=== PATIENT | female | born 1955 | race Caucasian/White ===

== ENCOUNTER 2020-06-29 11:18 | Inpatient (IN) | payer OTHER, MEDICARE, SELFPAY ==
[~2020-06-29] VITALS: Ht 154.9 cm; Wt 66.7 kg
[~2020-06-29 11:18] MED LIST: BUPIVACAINE /EPINEPHRINE/PF 0.25% 30 ML VIAL INJ ONE; CEFAZOLIN 2 GM IVPB PREMIX 50 ML IV ONE; LR 1,000 ML IV.SOLN IV ONE; MIDAZOLAM HCL 5 MG/5 ML VIAL IVP ONE; NS 1000 ML IV.SOLN IV ONE; NS IRRIG SOLN 1000 ML IR ONE; PROPOFOL 200MG/ 20ML VIAL (DIPRIVAN) IV ONE; ROCURONIUM BROMIDE 10 MG/ML (ZEMURON) IV ONE; SEVOFLURANE 15 MIN GAS INH ONE; fentaNYL CITRATE/PF 100 MCG/2 ML AMP IVP ONE
[2020-06-29 11:31] VITALS: BP_SYST 135
--- NOTE | 2020-06-29 11:35 | NUR ---
SENT TO NO BEDS IN ER
--- NOTE | 2020-06-29 11:45 | NUR ---
ER at bedside examining THE PT IN [place].
[2020-06-29 12:50] LABS: BASOPHILS % (AUTO) 0.4 % (0.0-2.0); EOSINOPHILS % (AUTO) 0.3 % (0.0-4.0); HEMATOCRIT 45.3 % (36-48); HEMOGLOBIN 15.2 g/dL (12.0-16.0); LYMPHOCYTES # (AUTO) 1.9 K/uL (1.0-5.5); LYMPHOCYTES % (AUTO) 17.1 % (20.5-51.5); MEAN CORPUSCULAR HEMOGLOBIN 30 pg (27-31); MEAN CORPUSCULAR HGB CONC 34 % (32-36); MEAN CORPUSCULAR VOLUME 90 fL (79.0-98.0); NEUTROPHILS % (AUTO) 73.2 % (40.0-70.0); PLATELET COUNT (AUTO) 302 K/uL (130-430); RED BLOOD CELL COUNT(AUTO) 5.03 MIL/uL (4.2-6.2); RED CELL DISTRIBUTION WIDTH 13.9 % (9.0-15.0); WHITE BLOOD COUNT (AUTO) 10.9 K/uL (4.8-10.8)
--- NOTE | 2020-06-29 13:06 | NUR ---
Patient to ER bed 2 to gown for evaluation. Side rails up.
[2020-06-29 13:07] LABS: CREATININE 0.57 mg/dL (0.55-1.30)
[2020-06-29 13:11] LABS: ALBUMIN 3.7 g/dL (3.4-4.8); PROTHROMBIN TIME 10.5 SECS (9.5-12.5); TOTAL BILIRUBIN 0.9 mg/dL (0.0-1.0)
--- NOTE | 2020-06-29 13:15 | NUR ---
# 22 gauge angiocath placed to laC. Use of asceptic technique. Opsite placed over site. Blood return noted. Blood for lab drawn from site. Flushed with 10 cc of normal saline. No evidence of infiltration noted. Patient tolerated well.
[2020-06-29 13:20] LABS: POTASSIUM 2.9 mmol/L (3.5-5.1)
--- NOTE | 2020-06-29 13:21 | NUR ---
COVID SWAB COLLECTED AND SENT TO LAB
--- NOTE | 2020-06-29 14:00 | NUR ---
EKG DONE AND GIVEN TO
--- NOTE | 2020-06-29 14:37 | NUR ---
UA COLLECTED AND SENT TO THE LAB
[2020-06-29] MEDS: NACL 0.9% 1,000 ML IV SCH ×2 (14:53→22:08)
[2020-06-29 14:57] LABS: BLOOD, URINE 1+ (NEGATIVE); GLUCOSE,URINE NEGATIVE (NEGATIVE); KETONES,URINE 2+ (NEGATIVE); LEUKOCYTE ESTERASE ,URINE NEGATIVE (NEGATIVE); NITRITE, URINE NEGATIVE (NEGATIVE); PROTEIN URINE 1+ (NEGATIVE); UROBILINOGEN,URINE 0.2 (0.2-1.0)
[2020-06-29 15:09] LABS: CLARITY/URINE HAZY (CLEAR); COLOR,URINE AMBER (YELLOW)
[2020-06-29 15:10] LABS: BILIRUBIN,URINE 1+ (NEGATIVE)
[2020-06-29 15:11] LABS: BACTERIA,URINE FEW /HPF (None Seen); MUCUS,URINE 3+ /LPF (None Seen); WBC,URINE 0-3 /HPF (0-3)
--- NOTE | 2020-06-29 15:57 | NUR ---
SURGICAL AND BLOOD CONSENTS SIGNED
[2020-06-29] MEDS ORDERED: KETOROLAC TROMETHAMINE 30 MG VIAL ONE (16:47)
[2020-06-29] MEDS ORDERED: KETOROLAC TROMETHAMINE 30 MG VIAL IVP ONE (17:00)
--- NOTE | 2020-06-29 17:00 | NUR ---
# 16 FR NG tube placed to RIGHT nare. Placement checked by auscultation of instilled air into stomach and aspiration of gastric contents. Tubing taped in place to prevent dislodging. Patient tolerated WELL.
--- NOTE | 2020-06-29 17:10 | NUR ---
DR. LEAVITT AT THE BEDSIDE
--- NOTE | 2020-06-29 17:10 | NUR ---
PT CAME INTO ER FOR C/O N/V SINCE THURSDAY ACCOMPANIED BY ABD PAIN. PT REPORTS BELCHING AND REFLUX. HX OF HERNIA, DIVERTICULITIS. HAS NOT HAD A BM IN 6 DAYS. AAOX4, V/S STABLE
[2020-06-29] MEDS ORDERED: KCL 20 mEq in 100 mL (PREMIX) 100 ML IV ONE ×2 (17:15→19:15)
--- NOTE | 2020-06-29 19:13 | NUR ---
REPORT GIVEN TO DEVANTE LONDONO FOR CONTINUING CARE
--- NOTE | 2020-06-29 20:00 | NUR ---
Transfer to Tele via ACLS protocol. Licensed nurse present. IV present no signs or symptoms of infiltration.
--- NOTE | 2020-06-29 20:00 | NUR ---
Admission Note Received patient from ER with diagnosis of strangulated hernia. Initial Plan of Care discussed-patient verbalized understanding. Oriented to room, call light, pain management and safety.
--- NOTE | 2020-06-29 20:00 | NUR ---
Patient will be admitted to care of Dr. Perez. Admitted to Tele unit. Will go to room 119. Belongings list completed. Complete and up to date summary report printed. SBAR report to be given at bedside with opportunity for questions.
[2020-06-29] MEDS ORDERED: LEVOFLOXACIN 500 MG/D5W 100 ML IV ONE ×2 (21:00→21:35)
--- NOTE | 2020-06-29 21:00 | NUR ---
ROUNDS/ASSESSMENT PATIENT AWAKE, AOX4, DENIES PAIN AT THIS TIME. NO S/S OF ACUTE DISTRESS NOTED. BREATHING EVEN AND UNLABORED. NGT ATTACHED, SECURED, ON CONTINUOUS LOW SUCTIONING. CALL LIGHT WITH PATIENT. BED ALARM ON. PATIENT EDUCATED TOBACCO BALER LIGHT, DEMONSTRATED BACK PROPER USE, AND VERBALIZED UNDERSTANDING TO CALL FOR ASSISTANCE.
[2020-06-29 21:19] VITALS: BP_SYST 131
[2020-06-29] MEDS ORDERED: metroNIDAZOLE 500 mg/NS 200 ML IV ONE (21:35)
--- NOTE | 2020-06-29 22:08 | NUR ---
IVF/POTASSIUM/ANTIBIOTICS IVF, POTASSIUM, AND ANTIBIOTICS HUNG AT THIS TIME. INFUSING WELL, IV SIDE IS PATENT, NO SIGNS OF INFILTRATION OR INFECTION NOTED. CALL LIGHT WITH PATIENT. WILL CONTINUE TO MONITOR AND REASSESS.
[2020-06-29] MEDS: metroNIDAZOLE 500 mg/NS 100 ML IV SCH (23:18)
--- NOTE | 2020-06-30 | NUR ---
ROUNDS PATIENT IN BED, SLEEPING, NO S/S OF ACUTE DISTRESS. BREATHING EVEN AND UNLABORED. IVF INFUSING WELL. NGT ATTACHED, SECURED, AND ON CONTINUOUS LOW SUCTION. CALL LIGHT WITH PATIENT. WILL CONTINUE TO MONITOR.
[2020-06-30 00:20] VITALS: BP_SYST 131
--- NOTE | 2020-06-30 02:08 | NUR ---
HIGH ALERT NOTE: Called Dr. BARKSDALE back at [phone] identified within the medical roster to verify physician authenticity for order to give Krider 40 meq.
[2020-06-30] MEDS ORDERED: POTASSIUM CHLORIDE 40 MEQ in NS 250 ML IV ONE (02:15)
--- NOTE | 2020-06-30 02:15 | NUR ---
POTASSIUM HUNG DR SARAH MADE AWARE, POTASSIUM AT 3.0, ORDERS GIVEN TO ADMINISTERED KRIDER 40 MEQ. 20 MEQ POTASSIUM HUNG AT THIS TIME. WILL CONTINUE TO MONITOR AND REASSESS.
[2020-06-30] MEDS: KCL 20 mEq in 100 mL (PREMIX) 100 ML IV SCH ×2 (02:18→04:19)
[2020-06-30] MEDS ORDERED: KCL 20 mEq in 100 mL (PREMIX) 100 ML IV ONE (04:15)
[2020-06-30] MEDS: metroNIDAZOLE 500 mg/NS 100 ML IV SCH ×3 (05:16→22:53)
[2020-06-30] MEDS ORDERED: LACT1CAP61 PO (05:44)
[2020-06-30] MEDS ORDERED: MAGN400T10 PO (05:44)
[2020-06-30] MEDS ORDERED: IBUP-1968 PO (05:44)
--- NOTE | 2020-06-30 06:55 | NUR ---
CLOSING NOTE PATIENT IN BED, SLEEPING AT THIS TIME. NO S/S OF ACUTE DISTRESS NOTED. BREATHING EVEN AND UNLABORED. HOB RAISED, NGT ATTACHED, SECURED, AND SUCTIONING, DARK GREEN OUTPUT NOTED. IVF INFUSING WELL, IV SITE IS PATENT, NO SIGNS OF INFILTRATION OR INFECTION NOTED. ALL NEEDS MET THROUGHOUT SHIFT. FALL, SAFETY PRECAUTIONS MAINTAINED. WILL CONTINUE TO MONITOR UNTIL PATIENT CARE IS ENDORSED TO ONCOMING DAYSHIFT NURSE.
[2020-06-30 07:33] LABS: BASOPHILS % (AUTO) 0.4 % (0.0-2.0); EOSINOPHILS # (AUTO) 0.1 K/uL (0.0-0.4); EOSINOPHILS % (AUTO) 1.1 % (0.0-4.0); HEMATOCRIT 42.6 % (36-48); HEMOGLOBIN 13.8 g/dL (12.0-16.0); LYMPHOCYTES # (AUTO) 1.4 K/uL (1.0-5.5); LYMPHOCYTES % (AUTO) 15.7 % (20.5-51.5); MEAN CORPUSCULAR HEMOGLOBIN 30 pg (27-31); MEAN CORPUSCULAR HGB CONC 32 % (32-36); MEAN CORPUSCULAR VOLUME 92 fL (79.0-98.0); MONOCYTES # (AUTO) 1.1 K/uL (0.0-1.0); MONOCYTES % (AUTO) 12.3 % (1.7-9.3); NEUTROPHILS # (AUTO) 6.4 K/uL (1.8-7.7); NEUTROPHILS % (AUTO) 70.5 % (40.0-70.0); PLATELET COUNT (AUTO) 278 K/uL (130-430); RED BLOOD CELL COUNT(AUTO) 4.61 MIL/uL (4.2-6.2); RED CELL DISTRIBUTION WIDTH 14.3 % (9.0-15.0)
[2020-06-30 07:48] LABS: ALBUMIN 2.9 g/dL (3.4-4.8); CALCIUM 8.1 mg/dL (8.4-11.0); CREATININE 0.54 mg/dL (0.55-1.30); POTASSIUM 3.8 mmol/L (3.5-5.1); TOTAL BILIRUBIN 0.9 mg/dL (0.0-1.0)
[2020-06-30 08:00] VITALS: BP_SYST 141
--- NOTE | 2020-06-30 08:05 | NUR ---
Notes- pt went to surgery at this time.
[2020-06-30] MEDS ORDERED: POLYMYXIN 500,000/BACIT.10,000 UNITS in NS IRR 1 L IR ONE (08:42)
[2020-06-30] MEDS ORDERED: ONDANSETRON HCL 4 MG/2 ML VIAL IVP PRN ×2 (08:45→09:30)
[2020-06-30] MEDS ORDERED: fentaNYL CITRATE/PF 100 MCG/2 ML AMP IVP PRN ×2 (08:45)
[2020-06-30] MEDS ORDERED: HYDROmorphone 1 MG INJ. 1 MG/ML AMPUL IVP PRN (09:30)
[2020-06-30] MEDS ORDERED: NALOXONE HCL 0.4 MG/ML AMP (NARCAN) IVP PRN (09:30)
[2020-06-30] MEDS: CEFAZOLIN 2 GM IVPB PREMIX 50 ML IV SCH ×2 (10:00→17:07)
--- NOTE | 2020-06-30 10:30 | NUR ---
Notes- received from recovery,drowsy. pain is controlled at this time. s/p laparoscopic hernia repair with x3 small incision noted. v/s stable. Enc to call for help a needed. NGT connected to intermittent suction as ordered will monitor.
--- NOTE | 2020-06-30 10:32 | NUR ---
Nutrition Update Willard scale 18 noted. Pt admitted for strangulated hernia Diet: NPO BMI: 28 kg/m2 RD to follow per nutrition care standards.
--- NOTE | 2020-06-30 11:00 | NUR ---
NOTES- AWAKE, ABDOMINAL BINDER APPLIED. PRICE CATHETER DRAINING WELL.
[2020-06-30 12:00] VITALS: BP_SYST 118
[2020-06-30] MEDS: D5/0.45 NS 1,000 ML IV SCH ×2 (13:00→22:54)
--- NOTE | 2020-06-30 14:00 | NUR ---
NOTES- AWAKE, ENC TO USE INCENTIVE SPIROMETER. VERBALIZE UNDERSTANDING
--- NOTE | 2020-06-30 15:54 | NUR ---
Notes Walking inside the room, tolerating so far. Addendum: 06/30/20 at 1556 by Cindi Wells RN wrong entry. intended for other patient
[2020-06-30 16:00] VITALS: BP_SYST 117
--- NOTE | 2020-06-30 17:27 | NUR ---
P.T. NOTES P.T. EVAL COMPLETED; REFER TO EVAL FOR DETAILS.
--- NOTE | 2020-06-30 17:46 | NUR ---
Dietitian Recommendations * Recommend continuing NPO * Consider advance to clear liquid diet if/when medically appropriate LP, RD Please refer to Nutrition Assessment for details. Addendum: 06/30/20 at [address] Amended: Links added.
--- NOTE | 2020-06-30 18:38 | NUR ---
Notes- Resting in bed, pain is controlled. NGT connected to low intermittent suction, no output so far since after surgery.
--- NOTE | 2020-06-30 19:15 | NUR ---
OPENING NOTE REPORT RECEIVED FROM DAYSKSFT NURSE. PATIENT RECEIVED LYING IN BED, AWAKE, AOX4, NO S/S OF ACUTE DISTRESS NOTED. BREATHING EVEN AND UNLABORED. HOB RAISED, NGT ATTACHED AND ON LOW INTERMITTENT SUCTIONING, SECURED. IVF INFUSING WELL, IV SITE IS PATENT, NO SIGNS OF INFILTRATION OR INFECTION NOTED. ABDOMINAL BINDER ATTACHED. PRICE ATTACHED, SECURED, AND DRAINING BY GRAVITY. SCDS ATTACHED AND OPERATING. CALL LIGHT WITH PATIENT. BED ALARM ON. WILL CONTINUE TO MONITOR.
[2020-06-30 20:00] VITALS: BP_SYST 127
[2020-06-30] MEDS: LEVOFLOXACIN 500 MG/D5W 100 ML IV SCH (20:21)
--- NOTE | 2020-06-30 20:22 | NUR ---
PAIN PATIENT COMPLAINED OF PAIN, PRN MEDICATION ADMINISTERED. CALL LIGHT WITH PATIENT. WILL CONTINUE TO MONITOR AND REASSESS.
--- NOTE | 2020-06-30 22:30 | NUR ---
DIZZY PATIENT COMPLAINED THAT THE PAIN MEDICATION CAUSED HER TO FEEL DIZZY. REQUESTED TO HAVE IT CHANGED, WILL INFORM .
[2020-07-01] VITALS: BP_SYST 132
--- NOTE | 2020-07-01 | NUR ---
ROUNDS/REPOSITIONED PATIENT IN BED, REQUEST TO BE REPOSITIONED, DONE BY RN AT THIS TIME. PATIENT STATES THAT SHE IS COMFORTABLE, DENIES PAIN AT THIS TIME. ALL NEEDS MET. BED ALARM ON. WILL CONTINUE TO MONITOR.
--- NOTE | 2020-07-01 02:00 | NUR ---
ROUNDS PATIENT IN BED ASLEEP AT THIS TIME. NO S/S OF ACUTE DISTRESS NOTED. BREATHING EVEN AND UNLABORED. CALL LIGHT WITH PATIENT. BED ALARM ON. WILL CONTINUE TO MONITOR.
[2020-07-01] MEDS: D5/0.45 NS 1,000 ML IV SCH ×2 (05:30→20:18)
[2020-07-01] MEDS: metroNIDAZOLE 500 mg/NS 100 ML IV SCH ×3 (05:48→21:50)
[2020-07-01] MEDS: MORPHINE 2 MG/ML INJ. SYRINGE IVP PRN ×3 (05:50→21:52)
[2020-07-01 06:56] LABS: ALBUMIN 2.4 g/dL (3.4-4.8); CALCIUM 7.5 mg/dL (8.4-11.0); CREATININE 0.41 mg/dL (0.55-1.30); POTASSIUM 3.7 mmol/L (3.5-5.1); TOTAL BILIRUBIN 0.6 mg/dL (0.0-1.0)
--- NOTE | 2020-07-01 07:19 | NUR ---
CLOSING NOTE PATIENT ENDORSED TO DAYSHIFT NURSE. PATIENT IN BED, SLEEPING COMFORTABLY. NO S/S OF ACUTE DISTRESS NOTED. BREATHING EVEN AND UNLABORED. HOB RAISED, NGT ATTACHED, SECURED, AND ON ILS. IVF INFUSING WELL, IV SITE IS PATENT, NO SIGNS OF INFILTRATION OR INFECTION NOTED. PRICE ATTACHED, SECURED, AND DRAINING BY GRAVITY. INCISION SITES SHOW NO SIGNS OF ACTIVE BLEEDING OR DRAINAGE. ABDOMINAL BINDER ATTACHED. ALL NEEDS MET. BED ALARM ON.
[2020-07-01 08:00] VITALS: BP_SYST 138
[2020-07-01 08:36] LABS: BASOPHILS % (AUTO) 0.4 % (0.0-2.0); EOSINOPHILS # (AUTO) 0.2 K/uL (0.0-0.4); EOSINOPHILS % (AUTO) 2.2 % (0.0-4.0); HEMATOCRIT 37.3 % (36-48); LYMPHOCYTES # (AUTO) 1.5 K/uL (1.0-5.5); LYMPHOCYTES % (AUTO) 18.4 % (20.5-51.5); MEAN CORPUSCULAR HEMOGLOBIN 30 pg (27-31); MEAN CORPUSCULAR HGB CONC 32 % (32-36); MEAN CORPUSCULAR VOLUME 93 fL (79.0-98.0); MONOCYTES # (AUTO) 0.9 K/uL (0.0-1.0); MONOCYTES % (AUTO) 11.3 % (1.7-9.3); NEUTROPHILS # (AUTO) 5.4 K/uL (1.8-7.7); NEUTROPHILS % (AUTO) 67.7 % (40.0-70.0); PLATELET COUNT (AUTO) 238 K/uL (130-430); RED BLOOD CELL COUNT(AUTO) 4.01 MIL/uL (4.2-6.2); RED CELL DISTRIBUTION WIDTH 14.2 % (9.0-15.0)
--- NOTE | 2020-07-01 11:42 | NUR ---
SEEN BY THE SURGEON, NGT OUT, PRICE OUT BY THIS TIME. DIET HAS NOT BEEN STARTED YET, JUST ICE CHIPS STILL, AND VERY LIGHT AMOUNT OF JUICE. DENIED ANY GAS PASSING. ENCOURAGED TO GET OUT AND AMBULATE WHEN SHE IS AVAILABLE. NO DIET STARTED YET, JUST ICE CHIPS AND VERY LIGHT AMOUNT OF JUICE ADVISED BY HER SURGEON. PER HABITAT BIOLOGIST DR, PATIENT CAN STAY ANOTHER DAY, AND PLAN TO DISCHARGE IN AM, IF FEASIBLE.
[2020-07-01 12:18] VITALS: BP_SYST 148
[2020-07-01 16:13] VITALS: BP_SYST 159
--- NOTE | 2020-07-01 19:30 | NUR ---
OPENING NOTES RECEIVED REPORT FROM DAY SHIFT RN. PT RESTING IN BED, ALERT & ORIENTED X4. BREATHING EVEN AND UNLABORED TO ROOM AIR. NO S/S OF RESPIRATORY DISTRESS NOTED. IV ON LEFT AC 22G INTACT, IVF RUNNING ORDERED RATE. NO SIGNS OF INFILTRATION NOTED. CALL LIGHT WITHIN REACH. SIDE RAILS UP X3. BED LOCKED IN LOWEST LEVEL. SAFETY AND FALL PRECAUTIONS MAINTAINED. WILL CONTINUE TO MONITOR.
[2020-07-01 20:00] VITALS: BP_SYST 149
[2020-07-01] MEDS: LEVOFLOXACIN 500 MG/D5W 100 ML IV SCH (20:18)
--- NOTE | 2020-07-01 21:52 | NUR ---
PAIN/MORPHINE PT REPORTING ABDOMINAL INCISION PAIN. ADMINISTERED MORPHINE ORDERED PRN. DISCUSSED MEDICATION ACTION AND POTENTIAL SIDE EFFECTS. PT VERBALIZED UNDERSTANDING. BREATHING EVEN AND UNLABORED TO ROOM AIR. O2 SAT 95%. ABDOMINAL BINDER ATTACHED. CALL LIGHT WITHIN REACH. BED LOCKED IN LOWEST LEVEL. SAFETY AND FALL PRECAUTIONS ARE IN PLACE. WILL CONTINUE TO MONITOR.
[2020-07-02] VITALS: BP_SYST 145
--- NOTE | 2020-07-02 00:10 | NUR ---
MIDNIGHT VITAL SIGN MIDNIGHT VITAL SIGN STABLE. PT DIAZ PAIN AT THIS TIME. PT WALKED TO THE BATHROOM WITH WALKER, STEADY GAIT NOTED. BREATHING EVEN AND UNLABORED TO ROOM AIR. NO SIGNS OF RESPIRATORY DISTRESS NOTED. IVF RUNNING ORDERED RATE. PT TOLERATING WELL. BED LOCKED IN LOWEST POSITION. CALL LIGHT WITHIN REACH. SAFETY AND FALL PRECAUTIONS MAINTAINED. WILL CONTINUE TO MONITOR.
--- NOTE | 2020-07-02 02:39 | NUR ---
RN ROUNDS PT SLEEPING. CHEST RISE AND FALL SYMMETRICAL. NO S/S OF ACUTE DISTRESS NOTED. IVF RUNNING ORDERED RATE. CALL LIGHT WITHIN REACH. BED ALARM ON, LOCKED IN LOWEST POSITION. SIDE RAILS UP X3. SAFETY AND FALL PRECAUTIONS ARE IN PLACE. WILL CONTINUE TO MONITOR.
[2020-07-02] MEDS: metroNIDAZOLE 500 mg/NS 100 ML IV SCH ×3 (05:48→22:41)
[2020-07-02] MEDS: D5/0.45 NS 1,000 ML IV SCH ×2 (05:48→11:30)
[2020-07-02 06:43] LABS: BASOPHILS % (AUTO) 0.4 % (0.0-2.0); EOSINOPHILS # (AUTO) 0.2 K/uL (0.0-0.4); EOSINOPHILS % (AUTO) 1.9 % (0.0-4.0); HEMATOCRIT 41.9 % (36-48); HEMOGLOBIN 13.6 g/dL (12.0-16.0); LYMPHOCYTES # (AUTO) 1.7 K/uL (1.0-5.5); LYMPHOCYTES % (AUTO) 18.3 % (20.5-51.5); MEAN CORPUSCULAR HEMOGLOBIN 30 pg (27-31); MEAN CORPUSCULAR HGB CONC 33 % (32-36); MEAN CORPUSCULAR VOLUME 92 fL (79.0-98.0); MONOCYTES % (AUTO) 10.7 % (1.7-9.3); NEUTROPHILS # (AUTO) 6.3 K/uL (1.8-7.7); NEUTROPHILS % (AUTO) 68.7 % (40.0-70.0); PLATELET COUNT (AUTO) 267 K/uL (130-430); RED BLOOD CELL COUNT(AUTO) 4.54 MIL/uL (4.2-6.2); RED CELL DISTRIBUTION WIDTH 14.2 % (9.0-15.0); WHITE BLOOD COUNT (AUTO) 9.1 K/uL (4.8-10.8)
[2020-07-02 07:50] LABS: ALBUMIN 2.7 g/dL (3.4-4.8); CALCIUM 8.2 mg/dL (8.4-11.0); CREATININE 0.43 mg/dL (0.55-1.30); TOTAL BILIRUBIN 0.7 mg/dL (0.0-1.0)
[2020-07-02] MEDS ORDERED: POTASSIUM CHLORIDE 40 MEQ in NS 250 ML IV ONE (08:00)
--- NOTE | 2020-07-02 10:28 | NUR ---
PHYSICAL THERAPY CO-SIGN The Physical Therapy Progress Notes documented by House Manager have been reviewed. Reviewed/Co-Signed by: Manuel Louis PT Documentation Done by: Luke Carrillo PTA Addendum: 07/02/20 at 1029 by Manuel Louis PT Amended: Links added.
[2020-07-02] MEDS: MORPHINE 2 MG/ML INJ. SYRINGE IVP PRN ×2 (10:43→21:28)
[2020-07-02 11:35] VITALS: BP_SYST 146
--- NOTE | 2020-07-02 15:37 | NUR ---
Patient A&Ox4 in bed resting upon hand off report. patient is placed on clear liquid diet tolerating liquids. C/o of abdominal discomfort but was able to pass gas and burp, no BM as of yet. Internal Medicine MD visited patient placed her on soft diet for breakfast, tray came and she refused tray d/t miscommunication will try diet at lunch. Ambulates with assistance to bathroom, walked up and down halls with pt assistance. c/o pain at about 1130 gave morphine 2mg IVPB current pain level was a 7, reassessed in one hour patients pain was 1. She ate 50% of lunch no reports of abdominal discomfort. MD placed DC orders with home health evaluation. Patient expressed her concerns about dc too early she is anxious talked to her and reassured her she wont leave before shes stable to go home, she calmed down. Will continue to round on patient Q2H.
[2020-07-02 15:43] VITALS: BP_SYST 120
[2020-07-02 18:45] VITALS: BP_SYST 144
--- NOTE | 2020-07-02 19:48 | NUR ---
ADMIT NOTE Late entry due to pt. care 1845 Received pt from ER to the floor with a diagnosis of Abdominal pain, strangulated hernia. Admission process initiated. patient oriented to pain management, safety and call light-teach back done. Addendum: 07/02/20 at 1952 by Abimael Ponce RN wrong entryirving
[2020-07-02 21:12] VITALS: BP_SYST 132
[2020-07-02] MEDS: LEVOFLOXACIN 500 MG/D5W 100 ML IV SCH (21:15)
--- NOTE | 2020-07-02 21:28 | NUR ---
PAIN MGT PATIENT MEDICATED WITH MORPHINE ORDERED FOR C/O ABDOMINAL PAIN 02/02. VITAL SIGNS STABLE.
--- NOTE | 2020-07-02 22:41 | NUR ---
ATB PATIENT DUE ANTIBIOTIC INFUSING. ASSISTED PATIENT OUT OF BED FOR RESTROOM USE. PATIENT DENIES PASSING FLATUS AND BOWEL MOVEMENTS.
--- NOTE | 2020-07-03 00:10 | NUR ---
OOB PATIENT ASSISTED OUT OF BED FOR REST ROOM USE. PATIENT PASSING GAS ORALLY. NO BM YET.
[2020-07-03 00:14] VITALS: BP_SYST 134
--- NOTE | 2020-07-03 01:30 | NUR ---
ROUNDS PATIENT RESTING IN BED. NO DISTRESS NOTED. IVF INFUSING ORDERED. VITAL SIGNS STABLE.
--- NOTE | 2020-07-03 02:40 | NUR ---
OOB PATIENT ASSISTED OUT OF BED FOR RESTROOM USE. ABDOMINAL BINDER IN PLACED AT ALL TIMES.
[2020-07-03] MEDS: metroNIDAZOLE 500 mg/NS 100 ML IV SCH (05:32)
[2020-07-03] MEDS: D5/0.45 NS 1,000 ML IV SCH ×2 (05:35→07:30)
--- NOTE | 2020-07-03 05:35 | NUR ---
ATB PATIENT DUE ANTIBIOTIC INFUSED. ASSISTED PATIENT OUT OF BED FOR REST ROOM USE.
--- NOTE | 2020-07-03 07:39 | NUR ---
Opening Note/Physician Rounds received bedside SBAR report from weight shifter RN, patient resting in bed, respirations even and unlabored on room air, no acute distress noted, patient reports pain is controlled, rounds with Dr. Andrade, new medication orders received, verified with read back, educated patient on use of call light and asked to call for assistance, patient verbalized understanding, call light in reach, educated patient on use of bed alarm for patient safety, patient verbalized understanding, patient refusing bed alarm, bed in low and locked position. Addendum: 07/03/20 at 0810 by Jaz Rodriguez RN per Dr. Andrade, possible discharge home this evening.
[2020-07-03 08:00] VITALS: BP_SYST 124
[2020-07-03] MEDS ORDERED: METOCLOPRAMIDE HCL 10 MG/2 ML VIAL IVP ONE (08:45)
--- NOTE | 2020-07-03 08:57 | NUR ---
Ambulated to bathroom patient ambulated to bathroom with walker, steady gait noted, patient voided x1, patient ambulated back to bed, patient requesting ice chips, provided patient with ice chips, patient resting in bed.
--- NOTE | 2020-07-03 09:35 | NUR ---
Physical Therapy patient ambulating in [place] with physical therapy and walker, tolerating well, no acute distress noted.
--- NOTE | 2020-07-03 10:35 | NUR ---
Dc Planning: s/w pt yesterday re dcp and HH : the pt refused HH , said her sister will be with her. She lives alone but independent prior to the surgery.
--- NOTE | 2020-07-03 10:50 | NUR ---
Ambulating patient ambulating in [place] with chargeback analyst, patient passed gas, patient tolerated well, patient resting in bed.
[2020-07-03 10:57] VITALS: BP_SYST 124
[2020-07-03] MEDS ORDERED: LEVO750T45 PO (11:05)
[2020-07-03] MEDS ORDERED: METR500T PO (11:05)
[2020-07-03] MEDS ORDERED: TRAM100T28 PO (11:06)
[2020-07-03] MEDS ORDERED: METOCLOPRAMIDE HCL 10 MG/2 ML VIAL IVP SCH (12:00)
--- NOTE | 2020-07-03 12:03 | NUR ---
Spoke with case management manager per patient she would like to know if she can have a walker for discharge home, spoke with case management manager Ni, per Ni shawna has refused home health and therefore will not be provided with a walker, per Ni [facility] etc., informed patient, patient verbalized understanding, per patient she will call her friend to see if they can get a walker for her, patients family here to pickup patient, per patient she will finish eating lunch before discharge.
[2020-07-03 12:05] VITALS: BP_SYST 149
--- NOTE | 2020-07-03 13:01 | NUR ---
Discharge provided patient with discharge packet and instructions, written prescription provided, patient verbalized understanding, no acute distress noted, respirations even and unlabored on room air, IV catheter removed, catheter intact, no bleeding, all belongings sent with patient, patient taken to parking lot via wheelchair, patient accompanied by sister for discharge home.
--- NOTE | 2020-07-10 12:45 | NUR ---
Discharge Follow Up Phone Call Phoned patient, . Patient stated she was improving daily. She had a follow up appointment with her PCP, Dr Andrade, on 07/09/20, and he stated that everything looked good. He checked the surgical site and nothing needs to be removed. She did not make a follow up appointment with Dr Boss but has his contact information. Explained that Dr boss wanted to see her a week post discharge. She is comfortable with just seeing Jeana Andrade. No questions or concerns.
== END 2020-07-03 12:45 | disposition home or self-care (01) | DRG 335 ==
LOC: SED 11:18 → SMU 13:35
PROVIDERS: ADMIT Internal Medicine; ATTEND Internal Medicine
PROC: 0YQ54ZZ Repair Right Inguinal Region, Percutaneous Endoscopic Approach (ICD-10-PCS; principal; 2020-06-29)
PROC: 0DN80ZZ Release Small Intestine, Open Approach (ICD-10-PCS; 2020-06-29)
DX: K40.30 Unilateral inguinal hernia, with obstruction, without gangrene, not specified as recurrent (principal); E43 Unspecified severe protein-calorie malnutrition; K56.609 Unspecified intestinal obstruction, unspecified as to partial versus complete obstruction; Z20.828 Contact with and (suspected) exposure to other viral communicable diseases; E87.6 Hypokalemia; Z88.1 Allergy status to other antibiotic agents; Z68.27 Body mass index [BMI] 27.0-27.9, adult
CPT/HCPCS: 36415; 71045; 76376; 80053; 81000-TC; 83690-TC; 84132-TC; 85025; 85610-TC; 85730-TC; 87081; 93005; 96365; 96366; 96375; 97110-GP; 97116-GP; 97163; 97530-GP; 99285; C1727; J0690; J1170; J1885; J1956; J2250; J2270; J2704; J2765; J3010; J3480; J3490; J7030; J7050; J7120

== ENCOUNTER 2020-10-22 06:40 | Day surgery (SDC) | payer OTHER, MEDICARE, SELFPAY ==
[~2020-10-22] VITALS: Ht 157.5 cm; Wt 62.6 kg
[~2020-10-22 06:40] MED LIST changes: -BUPIVACAINE /EPINEPHRINE/PF 0.25% 30 ML VIAL INJ ONE; -CEFAZOLIN 2 GM IVPB PREMIX 50 ML IV ONE; +IBUP-1968 PO; +LACT1CAP61 PO; +LEVO750T45 PO; -LR 1,000 ML IV.SOLN IV ONE; +MAGN400T10 PO; +METR500T PO; -MIDAZOLAM HCL 5 MG/5 ML VIAL IVP ONE; -NS 1000 ML IV.SOLN IV ONE; -NS IRRIG SOLN 1000 ML IR ONE; -PROPOFOL 200MG/ 20ML VIAL (DIPRIVAN) IV ONE; -ROCURONIUM BROMIDE 10 MG/ML (ZEMURON) IV ONE; -SEVOFLURANE 15 MIN GAS INH ONE; +TRAM100T28 PO; -fentaNYL CITRATE/PF 100 MCG/2 ML AMP IVP ONE
[2020-10-22 10:49] VITALS: BP_SYST 119
== END 2020-10-22 10:35 | disposition home or self-care (01) ==
LOC: SDS 06:40 → SMU 06:40 → SDS 10:35
PROVIDERS: ATTEND Colon & Rectal Surgery
DX: K62.5 Hemorrhage of anus and rectum (principal); K57.30 Diverticulosis of large intestine without perforation or abscess without bleeding; K64.8 Other hemorrhoids; K29.80 Duodenitis without bleeding; F41.9 Anxiety disorder, unspecified; M79.7 Fibromyalgia; J45.909 Unspecified asthma, uncomplicated; M19.90 Unspecified osteoarthritis, unspecified site; Z20.828 Contact with and (suspected) exposure to other viral communicable diseases
CPT/HCPCS: 36415; 43239; 45378; 87081; 88305; 88313; 96365; 96366; G0378; J7120; U0003

== ENCOUNTER 2021-01-31 11:19 | Emergency (ER) | payer OTHER, MEDICARE ==
[~2021-01-31] VITALS: Ht 162.6 cm; Wt 63.5 kg
[2021-01-31 11:30] VITALS: BP_SYST 162
[2021-01-31 11:56] LABS: BILIRUBIN,URINE NEGATIVE (NEGATIVE); CLARITY/URINE CLEAR (CLEAR); COLOR,URINE YELLOW (YELLOW); GLUCOSE,URINE NEGATIVE (NEGATIVE); KETONES,URINE NEGATIVE (NEGATIVE); LEUKOCYTE ESTERASE ,URINE NEGATIVE (NEGATIVE); NITRITE, URINE NEGATIVE (NEGATIVE); PROTEIN URINE NEGATIVE (NEGATIVE); UROBILINOGEN,URINE 0.2 (0.2-1.0)
[2021-01-31 11:58] LABS: BLOOD, URINE TRACE (NEGATIVE)
[2021-01-31 12:01] LABS: BACTERIA,URINE FEW /HPF (None Seen); WBC,URINE 0-3 /HPF (0-3)
[2021-01-31 12:13] LABS: EOSINOPHILS # (AUTO) 0.1 K/uL (0.0-0.4); LYMPHOCYTES # (AUTO) 1.5 K/uL (1.0-5.5); MEAN CORPUSCULAR HGB CONC 33 % (32-36); MONOCYTES # (AUTO) 0.6 K/uL (0.0-1.0); WHITE BLOOD COUNT (AUTO) 6.3 K/uL (4.8-10.8)
[2021-01-31 12:19] LABS: BASOPHILS % (AUTO) 0.4 % (0.0-2.0); HEMATOCRIT 39.2 % (36-48); HEMOGLOBIN 13.1 g/dL (12.0-16.0); LYMPHOCYTES % (AUTO) 23.6 % (20.5-51.5); MEAN CORPUSCULAR HEMOGLOBIN 30 pg (27-31); MEAN CORPUSCULAR VOLUME 90 fL (79.0-98.0); MONOCYTES % (AUTO) 9.5 % (1.7-9.3); NEUTROPHILS # (AUTO) 4.1 K/uL (1.8-7.7); NEUTROPHILS % (AUTO) 65.5 % (40.0-70.0); PLATELET COUNT (AUTO) 277 K/uL (130-430); RED BLOOD CELL COUNT(AUTO) 4.37 MIL/uL (4.2-6.2); RED CELL DISTRIBUTION WIDTH 14.2 % (9.0-15.0)
[2021-01-31 12:26] LABS: CREATININE 0.59 mg/dL (0.55-1.30)
[2021-01-31 12:30] LABS: PROTHROMBIN TIME 10.1 SECS (9.5-12.5)
[2021-01-31] MEDS ORDERED: NACL 0.9% 1,000 ML IV ONE (12:30)
[2021-01-31 12:37] LABS: ALBUMIN 3.1 g/dL (3.4-4.8); TOTAL BILIRUBIN 0.1 mg/dL (0.0-1.0)
[2021-01-31 14:05] VITALS: BP_SYST 162
== END 2021-01-31 14:06 | disposition home or self-care (01) ==
LOC: SED 11:19
DX: K57.91 Diverticulosis of intestine, part unspecified, without perforation or abscess with bleeding (principal); Z79.899 Other long term (current) drug therapy; Z88.1 Allergy status to other antibiotic agents
CPT/HCPCS: 36415; 74176; 76376; 80053; 81000; 83690; 85025; 85610; 86886; 86900; 86901; 96360; 99284; J7030

== ENCOUNTER 2021-02-12 17:05 | Emergency (ER) | payer OTHER, MEDICARE ==
[~2021-02-12] VITALS: Ht 154.9 cm; Wt 63.0 kg
[2021-02-12 17:20] VITALS: BP_SYST 138
--- NOTE | 2021-02-12 17:59 | NUR ---
Patient to ER bed 6 to gown for evaluation. Side rails up.
--- NOTE | 2021-02-12 18:10 | NUR ---
PT ARRIVES FROM HOME W/ A 2 WEEK HX OF LLQ ABD PAIN, INTERMITTENT, SHARP, 7/10. PT HAS AN EXTENSIVE HX OF DIVERTICULITIS, AND SEVERAL HERNIA SX. PT ALSO REPORT BEING CONSTIPATED FOR THE LAST 2 WEEKS
--- NOTE | 2021-02-12 18:10 | NUR ---
ER at bedside examining patient.
--- NOTE | 2021-02-12 18:20 | NUR ---
Timothy martinez in [facility] - 02/12/21 at 1855 by TANI AIDA COLLECTED AND SENT TO THE LAB
--- NOTE | 2021-02-12 18:30 | NUR ---
Patient transported to radiology via GURNEY, accompanied by STREET AND BUILDING DECORATOR.
[2021-02-12 18:37] LABS: BASOPHILS # (AUTO) 0.1 K/uL (0.0-0.2); BASOPHILS % (AUTO) 0.5 % (0.0-2.0); EOSINOPHILS # (AUTO) 0.2 K/uL (0.0-0.4); EOSINOPHILS % (AUTO) 1.4 % (0.0-4.0); HEMATOCRIT 39.8 % (36-48); HEMOGLOBIN 12.9 g/dL (12.0-16.0); LYMPHOCYTES # (AUTO) 2.4 K/uL (1.0-5.5); MEAN CORPUSCULAR HEMOGLOBIN 29 pg (27-31); MEAN CORPUSCULAR HGB CONC 32 % (32-36); MEAN CORPUSCULAR VOLUME 90 fL (79.0-98.0); MONOCYTES # (AUTO) 0.8 K/uL (0.0-1.0); MONOCYTES % (AUTO) 7.5 % (1.7-9.3); NEUTROPHILS # (AUTO) 7.8 K/uL (1.8-7.7); NEUTROPHILS % (AUTO) 69.6 % (40.0-70.0); PLATELET COUNT (AUTO) 329 K/uL (130-430); RED BLOOD CELL COUNT(AUTO) 4.41 MIL/uL (4.2-6.2); RED CELL DISTRIBUTION WIDTH 14.7 % (9.0-15.0); WHITE BLOOD COUNT (AUTO) 11.2 K/uL (4.8-10.8)
--- NOTE | 2021-02-12 18:40 | NUR ---
UA COLLECTED AND SENT TO THE LAB
[2021-02-12 18:49] LABS: CALCIUM 8.6 mg/dL (8.4-11.0); CREATININE 0.64 mg/dL (0.55-1.30); POTASSIUM 3.7 mmol/L (3.5-5.1)
[2021-02-12 18:50] LABS: BILIRUBIN,URINE NEGATIVE (NEGATIVE); CLARITY/URINE CLEAR (CLEAR); GLUCOSE,URINE NEGATIVE (NEGATIVE); KETONES,URINE NEGATIVE (NEGATIVE); LEUKOCYTE ESTERASE ,URINE NEGATIVE (NEGATIVE); NITRITE, URINE NEGATIVE (NEGATIVE); PH,URINE 7.5 (5.0-8.0); PROTEIN URINE NEGATIVE (NEGATIVE); UROBILINOGEN,URINE 0.2 (0.2-1.0)
--- NOTE | 2021-02-12 18:50 | NUR ---
# 22 gauge angiocath placed to RAC. Use of asceptic technique. Opsite placed over site. Blood return noted. Blood for lab drawn from site. Flushed with 10 cc of normal saline. No evidence of infiltration noted. Patient tolerated well.
[2021-02-12 18:51] LABS: C-REACTIVE PROTEIN QUANT 1.3 mg/dL (0-0.5)
[2021-02-12 18:53] LABS: ALBUMIN 3.3 g/dL (3.4-4.8); TOTAL BILIRUBIN 0.4 mg/dL (0.0-1.0)
[2021-02-12 18:56] LABS: BLOOD, URINE TRACE (NEGATIVE); COLOR,URINE STRAW (YELLOW)
[2021-02-12 19:04] LABS: BACTERIA,URINE RARE /HPF (None Seen); RBC,URINE 0-3 /HPF (0-3); WBC,URINE NONE SEEN /HPF (0-3)
[2021-02-12 19:06] LABS: PROTHROMBIN TIME 10.3 SECS (9.5-12.5)
--- NOTE | 2021-02-12 19:17 | NUR ---
CARE ENDORSED TO SPRING LOW
[2021-02-12] MEDS ORDERED: MAGN296S30 PO (19:20)
[2021-02-12] MEDS ORDERED: FLEETMO RC (19:20)
[2021-02-12] MEDS ORDERED: SODIUM PHOSPHATE,MONO-DIBASIC 133 ML ENEMA RC ONE (19:30)
[2021-02-12 20:20] VITALS: BP_SYST 138
--- NOTE | 2021-02-12 20:20 | NUR ---
Patient given written and verbal discharge instructions and verbalizes understanding. ER MD discussed with patient the results and treatment provided. Patient in stable condition. ID arm band removed. IV catheter removed intact and dressing applied, no active bleeding. Rx of Mineral Oil and Mag Citrate given. Patient educated on pain management and to follow up with PMD. Pain Scale 0/10 Opportunity for questions provided and answered. Medication side effect fact sheet provided.
== END 2021-02-12 20:20 | disposition home or self-care (01) ==
LOC: SED 17:05
DX: R10.32 Left lower quadrant pain (principal); Z88.1 Allergy status to other antibiotic agents; Z79.899 Other long term (current) drug therapy
CPT/HCPCS: 36415; 76376; 80053; 81000; 82150; 83605; 83615; 83690; 84484; 85025; 85610-TC; 85730-TC; 86140; 99284